=== PATIENT | male | born 1970 | race Hispanic/Latino ===

== ENCOUNTER 2018-06-08 12:48 | Emergency (ER) | payer MEDICAID, OTHER ==
[2018-06-08 12:55] VITALS: RESP 18; BMI 39.6
--- NOTE | 2018-06-08 13:35 | ED PDOC ---
Arrival/HPI - General Chief Complaint: Weakness/Neurological Deficit Time Seen by Provider: 06/08/18 12:51 Historian: Patient - History of Present Illness Narrative History of Present Illness (Text): 06/08/18 13:25 A 47 y/o M w/ pmhx of diabetes presents to the emergency department complaining of bilateral foot pain for the past few months. Patient reports feeling a sharp pain to his right ankle and decreased sensations to bottom of feet bilaterally. Patient reports he saw his primary care doctor today and was told to come to the ER to see a neurologist. Patient notes his primary care doctor prescribed to him Metformin for the pain which made him faint. Patient also reports to intermittent vomiting upon waking up the past few months. 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 Patient denies any shortness of breath, chest pain, abdominal pain, dizziness, or any other complaints. PMD: Dr. Santillan Time/Duration: > month Symptom Onset: Gradual Symptom Course: Unchanged Activities at Onset: Light Context: Home Past Medical History - Provider Review Nursing Documentation Reviewed: Yes - Infectious Disease Hx of Infectious Diseases: None - Cardiac Hx Cardiac Disorders: No - Pulmonary Hx Respiratory Disorders: No - Neurological Hx Neurological Disorder: No - HEENT Hx HEENT Disorder: No - Renal Hx Renal Disorder: No - Endocrine/Metabolic Hx Endocrine Disorders: No - Hematological/Oncological Hx Blood Disorders: No - Integumentary Hx Dermatological Disorder: No - Musculoskeletal/Rheumatological Hx Musculoskeletal Disorders: Yes Hx Herniated Disk: Yes - Gastrointestinal Hx Gastrointestinal Disorders: No - Genitourinary/Gynecological Hx Genitourinary Disorders: No - Psychiatric Hx Psychophysiologic Disorder: Yes Hx Anxiety: Yes Hx Substance Use: No Family/Social History - Physician Review Nursing Documentation Reviewed: Yes Family/Social History: No Known Family HX Smoking Status: Heavy Smoker > 10 Cigarettes Daily Hx Alcohol Use: Yes Frequency of alcohol use: Socially Hx Substance Use: No Allergies/Home Meds Allergies/Adverse Reactions: Allergies No Known Allergies Allergy (Verified 06/08/18 12:55) Home Medications: Home Meds Medication Instructions Recorded Confirmed diaZEpam [Valium] 1 mg PO TID 06/08/18 06/08/18 Review of Systems - Physician Review All systems were reviewed & negative as marked: Yes - Review of Systems Respiratory: absent: SOB Cardiovascular: absent: Chest Pain Gastrointestinal: absent: Abdominal Pain Musculoskeletal: Other (bilteral foot pain ) Neurological: Other (decreased sensations to bottom of feet and toes ). absent: Dizziness Physical Exam Vital Signs Reviewed: Yes Vital Signs Temp Pulse Pulse Resp BP BP Pulse Ox 06/08/18 13:11 108 H 127/71 06/08/18 12:54 98.0 F 105 H 18 130/83 97 Temperature: Afebrile Blood Pressure: Normal Pulse: Tachycardic Respiratory Rate: Normal Appearance: Positive for: Non-Toxic Mental Status: Positive for: Alert and Oriented X 3 - Systems Exam Head: Present: Atraumatic, Normocephalic Pupils: Present: PERRL Extroacular Muscles: Present: EOMI Conjunctiva: Present: Normal Respiratory/Chest: Present: Clear to Auscultation, Good Air Exchange. No: Respiratory Distress, Accessory Muscle Use Cardiovascular: Present: Regular Rate and Rhythm, Normal S1, S2, Peripheal Pulses Present. No: Murmurs Abdomen: Present: Distention (belly is distended but soft). No: Tenderness Back: Present: Normal Inspection Upper Extremity: Present: Normal Inspection. No: Cyanosis, Edema Lower Extremity: Present: Deformity (no obvious deformity to right foot), Neurovascularly Intact (decreased sensation to toes bilaterally but able to do rsiflex foot with ease) Neurological: Present: GCS=15, CN II-XII Intact Skin: Present: Warm, Dry, Normal Color. No: Rashes Psychiatric: Present: Alert, Oriented x 3, Normal Insight, Normal Concentration Medical Decision Making ED Course and Treatment: 06/08/18 13:26 Impression: A 47 y/o M presents to the emergency department complaining of bilateral foot pain. Differential Diagnosis included but are not limited to: - diabetic neuropathy Plan: -- Labs -- CBC -- Valium -- Toradol -- Xray of right foot -- Urinalysis -- Reassess and disposition Prior Visits: Notes and results from previous visits were reviewed. Progress Notes: 06/08/18 13:59 Labs reviewed with no evidence of leukocytosis noted. 06/08/18 15:32 Patient reevaluated and feels better. He is advised to continue follow up with his PCP and to follow up with a neurologist. Scripts provided. - Lab Interpretations Lab Results: 06/08/18 14:10 06/08/18 14:10 Lab Results 06/08/18 14:10: Sodium 135, Potassium 3.6, Chloride 94 L, Carbon Dioxide 25, Anion Gap 20, BUN 9, Creatinine 0.6 L, Est GFR ( Amer) > 60, Est GFR (Non-Af Amer) > 60, Random Glucose 109, Calcium 8.5, Magnesium 1.0 L*, Total Bilirubin 2.0 H, AST 225 H, ALT 68 H, Alkaline Phosphatase 94, Total Protein 8.9 H, Albumin 4.2, Globulin 4.8, Albumin/Globulin Ratio 0.9 L 06/08/18 14:10: Urine Color Yellow, Urine Appearance Turbid, Urine pH 6.0, Ur Specific [place] 1.010, Urine Protein Trace H, Urine Glucose (UA) Negative, Urine Ketones 40 H, Urine Blood Trace-intact H, Urine Nitrate Positive H, Urine Bilirubin Moderate H, Urine Urobilinogen 1.0 H, Ur Leukocyte Esterase Negative, Urine RBC None, Urine WBC 0 - 2, Urine Bacteria Trace 06/08/18 14:10: WBC 5.7, RBC 4.52, Hgb 14.6, Hct 43.0, MCV 95.1, MCH 32.3, MCHC 34.0, RDW 13.5, Plt Count 57 L, MPV 12.1 H, Gran % 62.5, Lymph % (Auto) 28.3, [place] % (Auto) 6.8 H, Eos % (Auto) 2.1, Baso % (Auto) 0.3, Gran # 3.57, Lymph # (Auto) 1.6, [place] # (Auto) 0.4, Eos # (Auto) 0.1, Baso # (Auto) 0.02, ESR 36 H I have reviewed the lab results: Yes - RAD Interpretation Narrative RAD Interpretations (Text): 06/08/18 15:44 Procedure: Xray of right foot Dictator: Lisandro Ma MD Impression: Negative study Vice President Regulatory: Radiologist - Scribe Statement The provider has reviewed the documentation as recorded by the Scribe Terese Ferrera All medical record entries made by the Scribe were at my direction and personally dictated by me. I have reviewed the chart and agree that the record accurately reflects my personal performance of the history, physical exam, medical decision making, and the department course for this patient. I have also personally directed, reviewed, and agree with the discharge instructions and disposition. Disposition/Present on Arrival - Present on Arrival Any Indicators Present on Arrival: No History of DVT/PE: No History of Uncontrolled Diabetes: No Urinary Catheter: No History of Decub. Ulcer: No History Surgical Site Infection Following: None - Disposition Have Diagnosis and Disposition been Completed?: Yes Diagnosis: Diabetic neuropathy Disposition: HOME/ ROUTINE Disposition Time: 15:49 Patient Plan: Discharge Condition: STABLE Discharge Instructions (ExitCare): Diabetic Neuropathy (DC), Diabetes Type 2 (DC) Print Language: ARABIC Additional Instructions: All medical record entries made by the Scribe were at my direction and personally dictated by me. I have reviewed the chart and agree that the record accurately reflects my personal performance of the history, physical exam, medical decision making, and the department course for this patient. I have also personally directed, reviewed, and agree with the discharge instructions and disposition. Prescriptions: Gabapentin 300 mg PO DAILY #10 capsule Referrals: Tito Walker MD [Staff Provider] - Follow up with primary Forms: [employer] (Yakut), WORK NOTE
[2018-06-08 14:23] LABS: BASO # 0.02 K/mm3 (0.0-2.0); BASO % 0.3 % (0.0-3.0); EOS # 0.1 (0.0-0.7); EOS % 2.1 % (1.5-5.0); GRAN # 3.57 (1.4-6.5); GRAN % 62.5 % (50.0-68.0); HEMOGLOBIN 14.6 g/dL (14.0-18.0); LYMPH # 1.6 (1.2-3.4); LYMPH % 28.3 % (22.0-35.0); MEAN CELL VOLUME 95.1 fl (80.0-105.0); MEAN CORPUSCULAR HEMOGLOBIN 32.3 pg (25.0-35.0); MEAN PLATELET VOLUME 12.1 fl (7.0-11.0); MONO # 0.4 (0.1-0.6); MONO % 6.8 % (1.0-6.0); RBC 4.52 10^6/uL (3.5-6.1); RED CELL DISTRIBUTION WIDTH 13.5 % (11.5-14.5); WHITE BLOOD COUNT 5.7 10^3/uL (4.5-11.0)
[2018-06-08 14:25] LABS: URINE BILIRUBIN MODERATE (NEGATIVE); URINE BLOOD TRACE-INTACT (NEGATIVE); URINE GLUCOSE (UA) NEGATIVE (NEGATIVE); URINE LEUKOCYTE ESTERASE NEGATIVE Leu/uL (NEGATIVE); URINE PROTEIN TRACE mg/dL (<30 mg/dL)
[2018-06-08 14:26] LABS: URINE APPEARANCE TURBID (CLEAR); URINE COLOR YELLOW (YELLOW)
[2018-06-08 14:29] LABS: ALB/GLOB RATIO 0.9 (1.1-1.8); ALBUMIN 4.2 g/dL (3.0-4.8); ALT/SGPT 68 U/L (7-56); AST/SGOT 225 U/L (17-59); BLOOD UREA NITROGEN 9 mg/dL (7-21); CALCIUM 8.5 mg/dL (8.4-10.5); GFR NON-AFRICAN AMERICAN > 60
[2018-06-08 14:31] LABS: URINE BACTERIA TRACE /hpf; URINE WBC 0 - 2 /hpf (0-6)
[2018-06-08] MEDS ORDERED: cefTRIAXone 1 gm 1 GM/100 ML BAG IVPB STA (14:51)
--- NOTE | 2018-06-08 15:31 | RAD ---
Date of service: 06/08/2018 PROCEDURE: Right Foot Radiographs. HISTORY: foot pain COMPARISON: None. FINDINGS: BONES: Normal. No fracture. JOINTS: Normal. SOFT TISSUES: Normal. OTHER FINDINGS: Small calcaneal spurs IMPRESSION: Negative study
[2018-06-08 16:04] VITALS: BP 121/77; PULSE 98; TEMP 98.7; O2SAT 99
== END 2018-06-08 16:13 | disposition home or self-care (01) ==
LOC: ED 12:48
DX: E11.40 Type 2 diabetes mellitus with diabetic neuropathy, unspecified (principal)
CPT/HCPCS: 73630; 80053; 81001; 83735; 85025; 85651; 87086; 96374; 99285; J1885